=== PATIENT | male | born 1985 | race African-American/Black ===

== ENCOUNTER 2017-04-06 10:03 | Emergency (ER) | payer SELFPAY ==
[~2017-04-06] VITALS: Ht 190.5 cm; Wt 187.3 kg
--- OUTSIDE RECORDS SUMMARY | 2017-04-06 10:06 | XMS REPORT | Clinical Summary ---
Author Author [facility] Address Unknown Phone Unavailable Care Team Providers Care Drying Oven Attendant Name Role Phone PCP Unavailable Allergies No Known Allergies Current Medications Prescription Sig. Disp. Refills Start End Date Status Date XIGDUO XR 5-1,000 mg per 04/28/19 Active ER tablet 17 TRULICITY 1.5 mg/0.5 mL 04/28/19 Active PnIj 17 lisinopril-hydroCHLOROthi 05/03/19 Active azide 17 (PRINZIDE,ZESTORETIC) 20-25 mg per tablet triamcinolone (KENALOG) 05/19/19 Active 0.1 % topical ointment 17 montelukast (SINGULAIR) 04/12/19 Active 10 mg tablet 17 ipratropium (ATROVENT) 03/29/19 Active 0.06 % nasal spray 17 fluticasone (FLONASE) 50 03/02/19 Active mcg/actuation nasal spray 17 atorvastatin (LIPITOR) 40 Take 1 tablet (40 mg 30 tablet 5 05/22/19 05/22/19 Active MG tablet total) by mouth nightly. 17 18 methocarbamol (ROBAXIN) Take 1-2 tab po q4 hours 20 tablet 0 07/19/19 Active 500 MG tablet prn pain/spasm. 17 glyBURIDE-metFORMIN Take 1 tablet by mouth 2 05/21/19 Discontin (GLUCOVANCE) 5-500 mg per (two) times daily. 17 ued tablet amLODIPine (NORVASC) 10 Take 10 mg by mouth 05/21/19 Discontin MG tablet daily. 17 ued pioglitazone (ACTOS) 45 Take 45 mg by mouth 05/21/19 Discontin MG tablet daily. 17 ued atorvastatin (LIPITOR) 40 Take 1 tablet (40 mg 30 tablet 5 05/22/19 05/22/19 Discontin MG tablet total) by mouth nightly. 17 17 ued ibuprofen (ADVIL,MOTRIN) Take 1 tablet (600 mg 30 tablet 0 07/19/19 07/29/19 600 MG tablet total) by mouth every 6 17 17 (six) hours as needed for Pain for up to 10 days. Active Problems Problem Noted Date Chest pain 05/20/2016 Diabetes mellitus (HCC) Hypertension Encounters Date Type Specialty Care Team Description 07/17/2016 Emergency Emergency Medicine Faye De Oliveira, Facial laceration, - MD initial encounter 07/18/2016 (Primary Dx) 05/20/2016 Emergency General Internal Medicine Jordi Banks MD Chest pain, unspecified - Jarad Jansen, type;Essential 05/21/2016 hypertension;Type 2 Sabina Bourgeois MD diabetes mellitus without Mikalaekh Sanjuana Mittal complication, without MD Stephen long-term current use of insulin (HCC);Gastroesophageal reflux disease without esophagitis 05/20/2016 Orders Only General Internal Medicine after 04/05/2016 Family History Medical History Relation Name Comments Diabetes Father Hypertension Father Diabetes Maternal Grandfather Hyperlipidemia Maternal Grandfather Hypertension Maternal Grandfather Diabetes Maternal Grandmother Hypertension Maternal Grandmother Diabetes Mother Hypertension Mother Diabetes Paternal Grandfather Hypertension Paternal Grandfather Diabetes Paternal Grandmother Hypertension Paternal Grandmother Relation Name Status Comments Father Maternal Grandfather Maternal Grandmother Mother Paternal Grandfather Paternal Grandmother Social History Tobacco Use Types Packs/Day Years Used Date Never Smoker Alcohol Use Drinks/Week oz/Week Comments Yes Sex Assigned at Date Recorded Not on file Last Filed Vital Signs Vital Sign Reading Time Taken Blood Pressure 157/90 07/17/2016 9:46 PM CDT Pulse 95 07/17/2016 9:46 PM CDT Temperature 36.5 C (97.7 F) 07/17/2016 9:46 PM CDT Respiratory Rate 18 07/17/2016 9:46 PM CDT Oxygen Saturation 97% 07/17/2016 9:46 PM CDT Inhaled Oxygen - - Concentration Weight 149.7 kg (330 lb) 07/17/2016 9:46 PM CDT Height 186 cm (6' 1.23") 07/17/2016 9:46 PM CDT Body Mass Index 43.27 07/17/2016 9:46 PM CDT Plan of Treatment Not on file Procedures Procedure Name Priority Date/Time Associated Diagnosis Comments OK RESUPERF WND FACE <2.5 Routine 07/18/2016 Results for this CM 2:59 AM CDT procedure are in the results section. after 04/05/2016 Results * LACERATION REPAIR (07/18/2016 2:59 AM) Narrative Faye De Oliveira MD 07/18/20162:59 AM Lac Repair Date/Time: 07/18/2016 12:10 AM Performed by: FAYE DE OLIVEIRA Authorized by: FAYE DE OLIVEIRA Consent: Verbal consent obtained. Risks and benefits: risks, benefits and alternatives were discussed Consent given by: patient Patient understanding: patient states understanding of the procedure being performed Patient consent: the patient's understanding of the procedure matches consent given Time out: Immediately prior to procedure a "time out" was called to verify the correct patient, procedure, equipment, community support associate and site/side marked as required. Body area: head/neck Location details: right eyebrow Laceration length: 2 cm Tendon involvement: none Nerve involvement: none Vascular damage: no Anesthesia: local infiltration Anesthesia: Anesthesia: local infiltration Local Anesthetic: lidocaine 1% without epinephrine Anesthetic total: 1 mL Sedation: Patient sedated: no Preparation: Patient was prepped and draped in the usual sterile fashion. Irrigation solution: tap water Irrigation method: syringe Amount of cleaning: standard Debridement: none Degree of undermining: none Skin closure: 5-0 Prolene Number of sutures: 3 Technique: simple Approximation: close Approximation difficulty: simple Dressing: antibiotic ointment Patient tolerance: Patient tolerated the procedure well with no immediate complications Immediate Post-Procedure Note Assistants to the procedure: None Pre-procedure diagnosis: laceration Post-procedure diagnosis: laceration Procedures Performed: Lac Repair Specimens removed: None Estimated blood loss (mL): None Complications: None Type of anesthesia: None Grafts or Implants: None * RHYTHM STRIP - SCAN (05/25/2016 8:50 AM) * ED ECG Interpretation (05/23/2016 2:45 PM) Jordi Crespo MD 05/23/20162:45 PM History Chief Complaint Patient presents with Chest Pain x 5 days Patient is a 30 y.o. male presenting with chest pain. The history is provided by the patient. Chest Pain Chest pain occurs intermittently. Chest pain heaviness up to 20 min Denies pleuritic cp; no sob. No Known Allergies Past Medical History Diagnosis Date Hypertension Diabetes mellitus (HCC) Past Surgical History Procedure Laterality Date Tympanostomy tube placement Family History Problem Relation Age of Onset Hypertension Mother Diabetes Mother Hypertension Father Diabetes Father Hypertension Maternal Grandmother Diabetes Maternal Grandmother Hypertension Maternal Grandfather Diabetes Maternal Grandfather Hyperlipidemia Maternal Grandfather Diabetes Paternal Grandmother Hypertension Paternal Grandmother Diabetes Paternal Grandfather Hypertension Paternal Grandfather History Substance Use Topics Smoking status: Never Smoker Smokeless tobacco: Not on file Alcohol Use: Yes Review of Systems Cardiovascular: Positive for chest pain. All other systems reviewed and are negative. Physical Exam BP 144/64 | Pulse 75 | Temp(Src) 97.8 F (36.6 C) (Oral) | Resp 18 | Ht 1.905 m (6' 3") | Wt 187.789 kg (414 lb) | BMI 51.75 kg/m2 | SpO2 100% Physical Exam Nursing note and vitals reviewed. Constitutional: He is oriented to person, place, and time. He appears well-developed and well-nourished. HENT: Head: Normocephalic and atraumatic. Eyes: Conjunctivae and EOM are normal. Cardiovascular: Normal rate, regular rhythm and normal heart sounds. Pulmonary/Chest: Effort normal and breath sounds normal. Abdominal: Soft. There is no tenderness. Neurological: He is alert and oriented to person, place, and time. Skin: Skin is warm and dry. Psychiatric: He has a normal mood and affect. His behavior is normal. Neurologic Exam Mental Status Oriented to person, place, and time. Cranial Nerves CN III, IV, Extraocular motions are normal. Ortho Exam ED Course ECG/EKG Interpretation Date/Time: 05/20/2016 6:02 PM Performed by: JORDI BANKS Authorized by: JORDI BANKS The ECG was interpreted by ED physician. This ECG was not compared with previous ECG(s).The ECG is interpreted as sinus rhythm. Rate is normal rate. Conduction: conduction normal. ST segments normal. T waves normal. Other findings: no other findings. Clinical Impression: non-specific ECGECG reviewed and does not meet STEMI criteria. MDM Number of Diagnoses or Management Options Chest pain, unspecified type: new and requires workup Risk of Complications, Morbidity, and/or Mortality Presenting problems: high Diagnostic procedures: moderate Management options: moderate Clinical Impression No diagnosis found. Discharge Medications Medication List ASK your doctor about these medications amLODIPine 10 MG tabletCommonly known as:NORVASC glyBURIDE-metFORMIN 5-500 mg per tabletCommonly known as: GLUCOVANCE pioglitazone 45 MG tabletCommonly known as:ACTOS Plan D/w dr sanjuana mcguire and will admit rdou Procedure Note Jordi Banks MD - 05/20/2016 6:00 PM CDT Formatting of this note may be different from the original. History Chief Complaint Patient presents with Chest Pain x 5 days Patient is a 30 y.o. male presenting with chest pain. The history is provided by the patient. Chest Pain Chest pain occurs intermittently. Chest pain heaviness up to 20 min Denies pleuritic cp; no sob. No Known Allergies Past Medical History Diagnosis Date Hypertension Diabetes mellitus (HCC) Past Surgical History Procedure Laterality Date Tympanostomy tube placement Family History Problem Relation Age of Onset Hypertension Mother Diabetes Mother Hypertension Father Diabetes Father Hypertension Maternal Grandmother Diabetes Maternal Grandmother Hypertension Maternal Grandfather Diabetes Maternal Grandfather Hyperlipidemia Maternal Grandfather Diabetes Paternal Grandmother Hypertension Paternal Grandmother Diabetes Paternal Grandfather Hypertension Paternal Grandfather History Substance Use Topics Smoking status: Never Smoker Smokeless tobacco: Not on file Alcohol Use: Yes Review of Systems Cardiovascular: Positive for chest pain. All other systems reviewed and are negative. Physical Exam BP 144/64 | Pulse 75 | Temp(Src) 97.8 F (36.6 C) (Oral) | Resp 18 | Ht 1.905 m (6' 3") | Wt 187.789 kg (414 lb) | BMI 51.75 kg/m2 | SpO2 100% Physical Exam Nursing note and vitals reviewed. Constitutional: He is oriented to person, place, and time. He appears well- developed and well-nourished. HENT: Head: Normocephalic and atraumatic. Eyes: Conjunctivae and EOM are normal. Cardiovascular: Normal rate, regular rhythm and normal heart sounds. Pulmonary/Chest: Effort normal and breath sounds normal. Abdominal: Soft. There is no tenderness. Neurological: He is alert and oriented to person, place, and time. Skin: Skin is warm and dry. Psychiatric: He has a normal mood and affect. His behavior is normal. Neurologic Exam Mental Status Oriented to person, place, and time. Cranial Nerves CN III, IV, Extraocular motions are normal. Ortho Exam ED Course ECG/EKG Interpretation Date/Time: 05/20/2016 6:02 PM Performed by: JORDI BANKS Authorized by: JORDI BANKS The ECG was interpreted by ED physician. This ECG was not compared with previous ECG(s).The ECG is interpreted as sinus rhythm. Rate is normal rate. Conduction: conduction normal. ST segments normal. T waves normal. Other findings: no other findings. Clinical Impression: non-specific ECGECG reviewed and does not meet STEMI criteria. MDM Number of Diagnoses or Management Options Chest pain, unspecified type: new and requires workup Risk of Complications, Morbidity, and/or Mortality Presenting problems: high Diagnostic procedures: moderate Management options: moderate Clinical Impression No diagnosis found. Discharge Medications Medication List ASK your doctor about these medications amLODIPine 10 MG tablet Commonly known as: NORVASC glyBURIDE-metFORMIN 5-500 mg per tablet Commonly known as: GLUCOVANCE pioglitazone 45 MG tablet Commonly known as: ACTOS Plan D/w dr sanjuana mcguire and will admit Jordi Atkinson MD 05/23/16 1445 * POC-Glucose meter (05/21/2016 12:17 PM) Only the most recent of 3 results within the time period is included. Component Value Ref Range POC-Glucose Meter 109Comment: TESTED AT [address] 70 - 110 mg/[place] [id number] Specimen Performing Laboratory Blood [facility] [address] [address] * Treadmill tolerance(non-nuclear Treadmill) (05/21/2016 8:16 AM) Specimen Performing Laboratory [facility] Narrative Protocol Name PAVEL Time In Exercise Phase 00:07:11 Max. Systolic BP 149 mmHg Max Diastolic BP 88 mmHg Max Heart Rate 187 BPM Max Predicted Heart Rate 189 BPM Reason For Termination Fatigue Reason for Test Chest Pain Target HR Formula (220 - Age)*100% Arrhythmias Premature Ventricular Contractions rare Resting ECG Normal sinus rhythm Poor R wave progression ST Changes No Significant Changes Overall Impression Normal stress ECG Chest Pain none HR Response To Exercise appropriate BP Response To Exercise APPROPRIATE RESPONSE COREG, LISINOPRIL The patient was able to achieve > 85% max HR, 7:11 mins Pavel protocol without symptoms of chest pain, one PVC without other ectopy. Griffiths Treadmill score 7, low risk study. Confirmed by fellow Hood Ray ([id number]) on 05/21/2016 11:32:42 AM Confirmed by MD BURSH JOSEPH P ([id number]) on 05/22/2016 1:44:49 PM Procedure Note Interface, External Ris In - 05/22/2016 1:45 PM CDT Protocol Name PAVEL Time In Exercise Phase 00:07:11 Max. Systolic BP 149 mmHg Max Diastolic BP 88 mmHg Max Heart Rate 187 BPM Max Predicted Heart Rate 189 BPM Reason For Termination Fatigue Reason for Test Chest Pain Target HR Formula (220 - Age)*100% Arrhythmias Premature Ventricular Contractions rare Resting ECG Normal sinus rhythm Poor R wave progression ST Changes No Significant Changes Overall Impression Normal stress ECG Chest Pain none HR Response To Exercise appropriate BP Response To Exercise APPROPRIATE RESPONSE COREG, LISINOPRIL The patient was able to achieve > 85% max HR, 7:11 mins Pavel protocol without symptoms of chest pain, one PVC without other ectopy. Griffiths Treadmill score 7, low risk study. Confirmed by fellow Hood Ray ([id number]) on 05/21/2016 11:32:42 AM Confirmed by MD BRUSH JOSEPH P ([id number]) on 05/22/2016 1:44:49 PM * 2D Echo W/Doppler(CW/PW/Color) (05/21/2016 7:12 AM) Specimen Performing Laboratory [facility] Echocardiography Laboratory [address] [place] [address] Voice:[phone] Transthoracic Echocardiogram Pat.Name:CHELSEY BARILLAS Pat.ID:[id number] St.Date: 05/21/2016 Refer.MD:ROMULO BANGURA Exam Time: 7:12:00 AMStudy Type:Echo Complete Height:75inWeight:413lb BSA: 2.99 m2 DOBAge:1985 ,30Y Sex: MALEBP: 94/50 HR:76 bpmSonogrphr: Snow Holt [facility] Pat. Stat.:Inpatient Room:[facility] Reason for Study:Acute Chest Pain / Suspected CAD History / Clinical:Diabetes, Hypertension Procedures:2D ECHO W/ DOPPLER (CW/PW/COLOR) SUMMARY: Left ventricular chamber size (by PSLAX dimension) is normal (male - LVIDd4.2-5.8 cm). Moderate concentric LV hypertrophy. Estimated LVEF by qualitative assessment is normal (60%). Normal diastolic function The right ventricular chamber size and systolic function are within normal limits. A trace of mitral regurgitation. A trace of tricuspid regurgitation. Estimated Peak systolic PA pressure is 25-30 mm Hg. No pericardial effusion is visualized. In comparison with the prior exam on 07-18-09 there are no significant changes. FINDINGS: Rhythm/BP: Regular sinus rhythm during the exam. LV: All of the LV segments contract normally. Global LV systolic functionis normal. Moderate concentric LV hypertrophy. Normaldiastolic function Left ventricular chamber size ( by PSLAXdimension) is normal (male - LVIDd4.2-5.8 cm). EstimatedLVEF by qualitative assessment is normal (60%). Normal(cardiac index 2-3 L/min/m2) cardiac output state at restis noted. LA: LA size is normal (16-34 ml/m2). RV: The right ventricular chamber size and systolic function are withinnormal limits. RA: RA cavity size is normal. AV: Normal AoV structure by available views. MV: A trace of mitral regurgitation. Normal MV structure by availableviews. TV: A trace of tricuspid regurgitation. TV structure appears normalby available views. Estimated Peak systolic PA pressureis 25-30 mm Hg. PV: Normal PV structure and function. Mild pulmonary regurgitation. AO: Aortic root size (Sinus of Valsalva diameter) is normal. Proximalascending aorta size is normal. Pericard: No pericardial effusion is visualized. Systemic Veins: The estimated RA pressure by IVC dynamics 5-10 mmHg. PA/PV/Pleural: The right upper pulmonary vein (RUPV) is normal. Comparison: In comparison with the prior exam on 07-18-09 there are no significantchanges. MEASUREMENTS: 2D LA Sng Plane LA Vol83.5 mlIndex 27.9 ml/m2 LA Area 23.3 cm2(8.8-23.4) RA Sng Plane RA Vol88.3 mlIndex 29.5 ml/m2 RA Area 25.2 cm2(8.3-19.5)* Aorta Ao Asc2.86 cm (2.1-3.4) LVOT Stroke Vol & Cardiac Out LVOT 2.3 cm Parasternal Long Cecil Ao An 2.28 cm (1.4-2.6) LV%fs 36.9 %(25-46) Ao Rtd3.17 cmLVPWd 1.38 cm IVSd1.38 cm LA Ds 3.95 cm (2.3-3.9)* LVIDd 5.42 cm (4.3-5.1)* LV Wmn 1.38 cm LVIDs 3.42 cm (2-4) DOPPLER LVOT Stroke Vol & Cardiac Out LVOT VTI17.5 cmLVOT CO 7.24 l/min LVOT SV 72.8 mlLVOT CI 2.42 l/min/m2 Aortic Valve SVi (LVOT)24.3 Signed 05/21/2016 10:35 AM Elijah Green M.D. Procedure Note Interface, External Ris In - 05/21/2016 10:37 AM CDT Echocardiography Laboratory [address] [place] [id number] Voice: [phone] Transthoracic Echocardiogram Pat.Name: CHELSEY BARILLAS JR. Pat.ID: [id number] .Date: 05/21/2016 Refer.MD: ROMULO BANGURA Exam Time: 7:12:00 AM Study Type:Echo Complete Height: 75in Weight: 413lb BSA: 2.99 m2 Age: 7 1985,30Y Sex: MALE BP: 94/50 HR: 76 bpm Sonogrphr: Snow Holt [facility] Pat. Stat.:Inpatient Room: [facility] Reason for Study:Acute Chest Pain / Suspected CAD History / Clinical:Diabetes, Hypertension Procedures:2D ECHO W/ DOPPLER (CW/PW/COLOR) SUMMARY: Left ventricular chamber size (by PSLAX dimension) is normal (male - LVIDd 4.2-5.8 cm). Moderate concentric LV hypertrophy. Estimated LVEF by qualitative assessment is normal (60%). Normal diastolic function The right ventricular chamber size and systolic function are within normal limits. A trace of mitral regurgitation. A trace of tricuspid regurgitation. Estimated Peak systolic PA pressure is 25-30 mm Hg. No pericardial effusion is visualized. In comparison with the prior exam on 07-18-09 there are no significant changes. FINDINGS: Rhythm/BP: Regular sinus rhythm during the exam. LV: All of the LV segments contract normally. Global LV systolic function is normal. Moderate concentric LV hypertrophy. Normal diastolic function Left ventricular chamber size (by PSLAX dimension) is normal (male - LVIDd 4.2-5.8 cm). Estimated LVEF by qualitative assessment is normal (60%). Normal (cardiac index 2-3 L/min/m2) cardiac output state at rest is noted. LA: LA size is normal (16-34 ml/m2). RV: The right ventricular chamber size and systolic function are within normal limits. RA: RA cavity size is normal. AV: Normal AoV structure by available views. MV: A trace of mitral regurgitation. Normal MV structure by available views. TV: A trace of tricuspid regurgitation. TV structure appears normal by available views. Estimated Peak systolic PA pressure is 25-30 mm Hg. PV: Normal PV structure and function. Mild pulmonary regurgitation. AO: Aortic root size (Sinus of Valsalva diameter) is normal. Proximal ascending aorta size is normal. Pericard: No pericardial effusion is visualized. Systemic Veins: The estimated RA pressure by IVC dynamics 5-10 mmHg. PA/PV/Pleural: The right upper pulmonary vein (RUPV) is normal. Comparison: In comparison with the prior exam on 07-18-09 there are no significant changes. MEASUREMENTS: 2D LA Sng Plane LA Vol 83.5 ml Index 27.9 ml/m2 LA Area 23.3 cm2 (8.8-23.4) RA Sng Plane RA Vol 88.3 ml Index 29.5 ml/m2 RA Area 25.2 cm2 (8.3-19.5)* Aorta Ao Asc 2.86 cm (2.1-3.4) LVOT Stroke Vol & Cardiac Out LVOT 2.3 cm Parasternal Long Cecil Ao An 2.28 cm (1.4-2.6) LV%fs 36.9 % (25-46) Ao Rtd 3.17 cm LVPWd 1.38 cm IVSd 1.38 cm LA Ds 3.95 cm (2.3-3.9)* LVIDd 5.42 cm (4.3-5.1)* LV Wmn 1.38 cm LVIDs 3.42 cm (2-4) DOPPLER LVOT Stroke Vol & Cardiac Out LVOT VTI 17.5 cm LVOT CO 7.24 l/min LVOT SV 72.8 ml LVOT CI 2.42 l/min/m2 Aortic Valve SVi (LVOT) 24.3 Signed 05/21/2016 10:35 AM Elijah Green M.D. * Urinalysis w/Microscopic (05/21/2016 7:12 AM) Component Value Ref Range Color, UA Yellow Clarity, UA Clear Specific [place], UA 1.011 1.001 - 1.035 pH, UA 5.5 5.0 - 8.0 Protein, UA Negative Negative Glucose, UA >1000 mg/dL (A) Negative Ketones, UA Negative Negative Bilirubin, UA Negative Negative Blood, UA Negative Negative Nitrite, UA Negative Negative Leukocytes, UA Large (A) Negative Urobilinogen, UA 0.2 0.2 - 1.0 mg/dL RBC, UA <1 /HPF WBC, UA 4 /HPF Bacteria, UA Occasional Squam Epithel, UA 5 /HPF Specimen Source Urine, Voided Specimen Performing Laboratory Urine - Urine, [place] [address] * CBC with platelet count + automated diff (05/21/2016 5:48 AM) Only the most recent of 2 results within the time period is included. Component Value Ref Range WBC 10.2 (H) 4.0 - 10.0 K/ L RBC 5.77 4.20 - 5.80 M/ L Hemoglobin 14.2 13.0 - 16.8 GM/DL Hematocrit 45.7 40.0 - 50.0 % MCV 79.1 (L) 82.0 - 98.0 fL MCH 24.7 (L) 27.0 - 33.0 pg MCHC 31.2 (L) 32.0 - 36.0 GM/DL RDW 14.2 10.3 - 14.2 % Platelets 309 150 - 430 K/CU MM MPV 8.8 6.5 - 10.5 fL nRBC 0 0 - 0 /100 WBC % Neutros 70 % % Lymphs 22 % % Monos 7 % % Eos 1 % % Baso 0 % # Neutros 7.15 1.80 - 8.00 K/ L # Lymphs 2.20 1.48 - 4.50 K/ L # Monos 0.76 0.00 - 1.30 K/ L # Eos 0.12 0.00 - 0.50 K/ L # Baso 0.00 0.00 - 0.20 K/ L Specimen Performing Laboratory Blood - Arm, Left [facility] [address] [place] [address] Narrative 0.00 * CBC with platelet count + automated diff (05/21/2016 5:48 AM) Only the most recent of 2 results within the time period is included. Specimen Performing Laboratory Blood Narrative The following orders were created for panel order CBC with platelet count + automated diff. Procedure Abnormality Status --------- - ------ CBC with platelet count ...[[id number]]AbnormalFinal result Please view results for these tests on the individual orders. * Hemoglobin A1c (05/21/2016 5:48 AM) Component Value Ref Range Hemoglobin A1C 8.7 (H)Comment: POSSIBLE HEMOGLOBIN S VARIANT 4.3 - 6.1 % NOTED IN HEMOGLOBIN A1C CHROMATOGRAPH. SUGGEST HEMOGLOBIN ELECTROPHORESIS IF CLINICALLY INDICATED. Specimen Performing Laboratory Blood - Arm, [address] [address] * Troponin I (05/21/2016 5:47 AM) Only the most recent of 2 results within the time period is included. Component Value Ref Range Troponin I <0.01 0.00 - 0.03 ng/mL Specimen Performing Laboratory Blood - Arm, [address] [address] Narrative Effective 01/08/2014: Reference Range Change New: 0.00-0.03 Previous 0.00-0.15 Troponin I (TnI) levels must be interpreted in the context of the presenting symptoms and the clinical findings. Elevated TnI levels indicate myocardial damage, but are not specific for ischemic heart disease. Elevated TnI levels are seen in patients with other cardiac conditions (including myocarditis and congestive heart failure), and slight TnI elevations occur in patients with other conditions, including sepsis, renal failure, acidosis, acute neurological disease, and persistent tachyarrhythmia. * Prothrombin time/INR (05/21/2016 5:47 AM) Component Value Ref Range Protime 13.8 11.7 - 14.7 seconds INR 1.1 <=5.9 Specimen Performing Laboratory Blood - Arm, [address] [address] Narrative RECOMMENDED COUMADIN/WARFARIN INR THERAPY RANGES STANDARD DOSE: 2.0 - 3.0 Includes: PROPHYLAXIS for venous thrombosis, systemic embolization; TREATMENT for venous thrombosis and/or pulmonary embolus. HIGH RISK: Target INR is 2.5-3.5 for patients with mechanical heart valves. * Magnesium (05/21/2016 5:47 AM) Only the most recent of 2 results within the time period is included. Component Value Ref Range Magnesium 2.1 1.6 - 2.6 mg/dL Specimen Performing Laboratory Blood - Arm, [address] [address] * Hepatic function panel (05/21/2016 5:47 AM) Component Value Ref Range Protein, Total 7.8 6.0 - 8.3 gm/dL Albumin 4.1 3.5 - 5.0 g/dL Total Bilirubin 0.4 0.2 - 1.2 mg/dL Bilirubin, Direct 0.2 0.1 - 0.5 mg/dL Alkaline Phosphatase 73 40 - 150 U/L AST 21 5 - 34 U/L ALT 42 6 - 55 U/L Specimen Performing Laboratory Blood - Arm, [address] [address] * Lipid panel (05/21/2016 5:47 AM) Component Value Ref Range Triglycerides 125 mg/dL Cholesterol 172 mg/dL HDL 26 mg/dL LDL Calculated 121 mg/dL Specimen Performing Laboratory Blood - Arm, [address] [address] Narrative Triglyceride Reference Range: Low Risk <150 [id number] High Risk 200-499 Very High Risk>=500 Cholesterol Reference Range: Low Risk <200 Mholdmnuuu831-682 High Risk>240 HDL Cholesterol Reference Range: Low Risk >=60 High Risk <40 LDL Cholesterol Reference Range: Optimal<100 Near Fkmyzre309-837 Mqvjjpkfrl594-435 Joya815-178 Very High >=190 * Basic metabolic panel (05/21/2016 5:47 AM) Only the most recent of 2 results within the time period is included. Component Value Ref Range Sodium 137 136 - 145 meq/L Potassium 4.1 3.5 - 5.1 meq/L Chloride 100 98 - 107 meq/L CO2 26 22 - 29 meq/L BUN 14 7 - 21 mg/dL Creatinine 0.90 0.57 - 1.25 mg/dL Glucose 121 (H) 70 - 105 mg/dL Calcium 9.8 8.4 - 10.2 mg/dL EGFR 119Comment: ESTIMATED GFR IS NOT ACCURATE mL/min/1.73 sq m CREATININE CLEARANCE IN PREDICTING GLOMERULAR FILTRATION RATE. ESTIMATED GFR IS NOT APPLICABLE FOR DIALYSIS PATIENTS. Specimen Performing Laboratory Blood - Arm, Left [address] [address] * Creatine Kinase (CK), Total and MB (05/21/2016 12:41 AM) Component Value Ref Range Total CK 79 29 - 200 U/L CK-MB 0.8 0.0 - 6.6 ng/mL MB Relative Index 1.0 % Specimen Performing Laboratory Blood - Arm, Left [address] [address] Narrative Effective 01/08/2014: CK-MB Reference Range Change New: 0.0-6.6Previous: 0.0-4.9 CK-MB Reference Range: <6.7Normal 6.7-10.0Borderline >10.0 Abnormal * ECG 12 lead (05/20/2016 8:54 PM) Only the most recent of 2 results within the time period is included. Specimen Performing Laboratory GE MUSE Narrative Ventricular Rate 93 BPM Atrial Rate 93 BPM P-R Interval 154 ms QRS Duration 92 ms Q-T Interval 336 ms QTC Calculation(Bazett) 417 ms P Cecil 27 degrees R Cecil -14 degrees T Cecil 37 degrees Normal sinus rhythm Normal ECG When compared with ECG of 18-JUL-2009 10:17, No significant change was found Confirmed by MD SHOOK JORGE ([id number]) on 05/21/2016 2:54:33 PM Procedure Note Interface, External Ris In - 05/21/2016 2:54 PM CDT Ventricular Rate 93 BPM Atrial Rate 93 BPM P-R Interval 154 ms QRS Duration 92 ms Q-T Interval 336 ms QTC Calculation(Bazett) 417 ms P Cecil 27 degrees R Cecil -14 degrees T Cecil 37 degrees Normal sinus rhythm Normal ECG When compared with ECG of 18-JUL-2009 10:17, No significant change was found Confirmed by MD SHOOK JORGE ([id number]) on 05/21/2016 2:54:33 PM * XR chest 2 views (05/20/2016 5:10 PM) Specimen Performing Laboratory GE RIS Narrative FINAL REPORT TECHNIQUE: Frontal and lateral chest radiographs dated 05/20/2016. CLINICAL HISTORY: Chest pain COMPARISON STUDY: Chest radiograph dated 04/01/2009 FINDINGS: The lateral view is degraded by motion artifact. Lungs are clear. No pleural effusion or pneumothorax. Cardiomediastinal silhouette is normal in size. No pulmonary edema. No bone or soft tissue abnormalities are seen. IMPRESSION: Normal chest radiographs. Signed: Kassandra Augustin MD Report Verified Date/Time:05/20/2016 17:22:18 Reading Location: [facility] Radiology Reading Room Procedure Note Interface, External Ris In - 05/20/2016 5:24 PM CDT FINAL REPORT TECHNIQUE: Frontal and lateral chest radiographs dated 05/20/2016. CLINICAL HISTORY: Chest pain COMPARISON STUDY: Chest radiograph dated 04/01/2009 FINDINGS: The lateral view is degraded by motion artifact. Lungs are clear. No pleural effusion or pneumothorax. Cardiomediastinal silhouette is normal in size. No pulmonary edema. No bone or soft tissue abnormalities are seen. IMPRESSION: Normal chest radiographs. Signed: Kassandra Augustin MD Report Verified Date/Time: 05/20/2016 17:22:18 Reading Location: [facility] Radiology Reading Room * Rapid Myoglobin (05/20/2016 5:01 PM) Component Value Ref Range Rapid Myoglobin 108 (H) <107 ng/mL Specimen Performing Laboratory Blood [facility], [facility] [address] [place] [address] * Rapid Troponin I (05/20/2016 5:01 PM) Component Value Ref Range Rapid Troponin I <0.05 <0.05 ng/mL Specimen Performing Laboratory [facility], [facility] [address] [place] [address] * Rapid CK-MB (05/20/2016 5:01 PM) Component Value Ref Range Rapid CKMB 1.5 0.0 - 4.3 ng/mL Specimen Performing Laboratory Blood [facility], [facility] [address] [place] [address] * PT/PTT (05/20/2016 5:01 PM) Component Value Ref Range Protime 10.6 9.8 - 12.0 seconds INR 1.0 <=5.9 PTT 25.7 (L) 25.8 - 34.5 seconds Specimen Performing Laboratory Blood [facility], [facility] , [facility] [address] [place] [address] Narrative RECOMMENDED COUMADIN/WARFARIN INR THERAPY RANGES STANDARD DOSE: 2.0 - 3.0 Includes: PROPHYLAXIS for venous thrombosis, systemic embolization; TREATMENT for venous thrombosis and/or pulmonary embolus. HIGH RISK: Target INR is 2.5-3.5 for patients with mechanical heart valves. * B-type Natriuretic Factor (BNP) (05/20/2016 5:01 PM) Component Value Ref Range BNP <5 0 - 100 pg/mL Specimen Performing Laboratory Blood [facility], [facility] , [facility] [address] [place] [address] * Creatine Kinase (CK) (05/20/2016 5:01 PM) Component Value Ref Range Total CK 75 40 - 250 U/L Specimen Performing Laboratory Blood [facility], [facility] , [facility] [address] [place] [address] after 04/05/2016
--- OUTSIDE RECORDS SUMMARY | 2017-04-06 10:06 | XMS REPORT ---
Author Author [facility] Address Unknown Phone Unavailable Care Team Providers Care Ham Pumper Name Role Phone BRENDA BABB Unavailable Unavailable Problems This patient has no known problems. Allergies, Adverse Reactions, Alerts This patient has no known allergies or adverse reactions. Medications This patient has no known medications. Results Test Description Test Time Test Comments Text Results Atomic Results Result Comments POCT-GLUCOSE METER 2016-05-21 14:24:00 POC-GLUCOSE METER (BEAKER) (test axst=0841) 109 mg/dL 70-110 TESTED AT [facility] [address] [facility] [address] HEMOGLOBIN [id number] 10:22:00* Test Item Value Reference Range Comments HEMOGLOBIN A1C (BEAKER) (test egry=830) 8.7 % 4.3-6.1 POSSIBLE HEMOGLOBIN S VARIANT NOTED IN HEMOGLOBIN A1C CHROMATOGRAPH. SUGGEST HEMOGLOBIN ELECTROPHORESIS IF CLINICALLY INDICATED. URINALYSIS W/ [id number] 09:33:00* Test Item Value Reference Range Comments COLOR (BEAKER) (test xmta=861) Yellow CLARITY (BEAKER) (test oeyi=530) Clear SPECIFIC GRAVITY UA (BEAKER) (test uoqi=702) 1.011 1.001-1.035 PH UA (BEAKER) (test yrki=684) 5.5 5.0-8.0 PROTEIN UA (BEAKER) (test xfda=780) Negative Negative GLUCOSE UA (BEAKER) (test ckmw=751) >1000 mg/dL Negative KETONES UA (BEAKER) (test zjhi=157) Negative Negative BILIRUBIN UA (BEAKER) (test jpjl=294) Negative Negative BLOOD UA (BEAKER) (test vxhl=498) Negative Negative NITRITE UA (BEAKER) (test gobi=169) Negative Negative LEUKOCYTE ESTERASE UA (BEAKER) (test krsb=743) Large Negative UROBILINOGEN UA (BEAKER) (test edte=368) 0.2 mg/dL 0.2-1.0 RBC UA (BEAKER) (test xuyd=304) < /HPF WBC UA (BEAKER) (test szjy=153) 4 /HPF BACTERIA (BEAKER) (test ohre=576) Occasional SQUAMOUS EPITHELIAL (BEAKER) (test liox=663) 5 /HPF SOURCE(BEAKER) (test swno=7926) Urine, Voided TROPONIN [id number] 07:25:00* Test Item Value Reference Range Comments TROPONIN I (BEAKER) (test svbh=560) < ng/mL 0.00-0.03 Effective 01/08/2014: Reference Range ChangeNew: 0.00-0.03 Previous 0.00- 0.15Troponin I (TnI) levels must be interpreted in [...] failure, acidosis, acute neurological disease, and persistent tachyarrhythmia.[id number] 07:19:00* Test Item Value Reference Range Comments MAGNESIUM (BEAKER) (test fyfc=413) 2.1 mg/dL 1.6-2.6 BASIC METABOLIC [id number] 07:19:00* Test Item Value Reference Range Comments SODIUM (BEAKER) (test gakj=743) 137 meq/L 136-145 POTASSIUM (BEAKER) (test dikf=187) 4.1 meq/L 3.5-5.1 CHLORIDE (BEAKER) (test dhtl=490) 100 meq/L 98-107 CO2 (BEAKER) (test dzql=565) 26 meq/L 22-29 BLOOD UREA NITROGEN (BEAKER) (test vjqj=280) 14 mg/dL 7-21 CREATININE (BEAKER) (test bylz=440) 0.90 mg/dL 0.57-1.25 GLUCOSE RANDOM (BEAKER) (test ifhl=094) 121 mg/dL 70-105 CALCIUM (BEAKER) (test wqpn=120) 9.8 mg/dL 8.4-10.2 EGFR (BEAKER) (test mtff=5658) 119 mL/min/1.73 sq m ESTIMATED GFR IS NOT ACCURATE CREATININE CLEARANCE IN PREDICTING GLOMERULAR FILTRATION RATE. ESTIMATED GFR IS NOT APPLICABLE FOR DIALYSIS PATIENTS. LIPID [id number] 07:19:00* Test Item Value Reference Range Comments TRIGLYCERIDES (BEAKER) (test tfpf=621) 125 mg/dL CHOLESTEROL (BEAKER) (test bema=011) 172 mg/dL HDL CHOLESTEROL (BEAKER) (test dchc=751) 26 mg/dL LDL CHOLESTEROL CALCULATED (BEAKER) (test wqmy=692) 121 mg/dL Triglyceride Reference Range: Low Risk <150 Borderline 150-199 High Risk 200-499 Very High Risk >=500Cholesterol Reference Range: Low Risk <200 Borderline 200-239 High Risk >240HDL Cholesterol Reference Range: Low Risk >=60 High Risk <40LDL Cholesterol Reference Range: Optimal <100 Near Optimal 100-129 Borderline 130-159 High 160-189 Very High >=190 HEPATIC FUNCTION [id number] 07:19:00* Test Item Value Reference Range Comments TOTAL PROTEIN (BEAKER) (test edwd=955) 7.8 gm/dL 6.0-8.3 ALBUMIN (BEAKER) (test mfmk=2477) 4.1 g/dL 3.5-5.0 BILIRUBIN TOTAL (BEAKER) (test kxza=465) 0.4 mg/dL 0.2-1.2 BILIRUBIN DIRECT (BEAKER) (test nnzc=871) 0.2 mg/dL 0.1-0.5 ALKALINE PHOSPHATASE (BEAKER) (test fqcw=964) 73 U/L 40-150 AST (SGOT) (BEAKER) (test tonn=751) 21 U/L 5-34 ALT (SGPT) (BEAKER) (test wkss=584) 42 U/L 6-55 POCT-GLUCOSE [id number] 07:09:00* Test Item Value Reference Range Comments POC-GLUCOSE METER (BEAKER) (test ffhx=3926) 125 mg/dL 70-110 TESTED AT [facility] [address] [facility] [address] CBC W/PLT COUNT & AUTO [id number] 06:43:00* Test Item Value Reference Range Comments WHITE BLOOD CELL COUNT (BEAKER) (test hqzd=045) 10.2 K/ L 4.0-10.0 RED BLOOD CELL COUNT (BEAKER) (test bvnc=946) 5.77 M/ L 4.20-5.80 HEMOGLOBIN (BEAKER) (test ixjm=205) 14.2 GM/DL 13.0-16.8 HEMATOCRIT (BEAKER) (test itpq=712) 45.7 % 40.0-50.0 MEAN CORPUSCULAR VOLUME (BEAKER) (test untv=560) 79.1 fL 82.0-98.0 MEAN CORPUSCULAR HEMOGLOBIN (BEAKER) (test mvqu=147) 24.7 pg 27.0-33.0 MEAN CORPUSCULAR HEMOGLOBIN CONC (BEAKER) (test sljf=251) 31.2 GM/DL 32.0- 36.0 RED CELL DISTRIBUTION WIDTH (BEAKER) (test mdmj=315) 14.2 % 10.3-14.2 PLATELET COUNT (BEAKER) (test oeai=135) 309 K/CU MM 150-430 MEAN PLATELET VOLUME (BEAKER) (test tdpz=292) 8.8 fL 6.5-10.5 NUCLEATED RED BLOOD CELLS (BEAKER) (test dsrd=486) 0 /100 WBC 0-0 NEUTROPHILS RELATIVE PERCENT (BEAKER) (test qkdz=439) 70 % LYMPHOCYTES RELATIVE PERCENT (BEAKER) (test qxav=590) 22 % MONOCYTES RELATIVE PERCENT (BEAKER) (test xujj=146) 7 % EOSINOPHILS RELATIVE PERCENT (BEAKER) (test etoq=278) 1 % BASOPHILS RELATIVE PERCENT (BEAKER) (test qtef=526) 0 % NEUTROPHILS ABSOLUTE COUNT (BEAKER) (test pjjs=087) 7.15 K/ L 1.80-8.00 LYMPHOCYTES ABSOLUTE COUNT (BEAKER) (test ibkh=345) 2.20 K/ L 1.48-4.50 MONOCYTES ABSOLUTE COUNT (BEAKER) (test lzyb=870) 0.76 K/ L 0.00-1.30 EOSINOPHILS ABSOLUTE COUNT (BEAKER) (test dhnj=667) 0.12 K/ L 0.00-0.50 BASOPHILS ABSOLUTE COUNT (BEAKER) (test hrny=253) 0.00 K/ L 0.00-0.20 0.00PROTHROMBIN [id number] 06:41:00* Test Item Value Reference Range Comments PROTIME (BEAKER) (test wcyw=461) 13.8 seconds 11.7-14.7 INR (BEAKER) (test fynn=933) 1.1 <=5.9 RECOMMENDED COUMADIN/WARFARIN INR THERAPY RANGESSTANDARD DOSE: 2.0 - 3.0 Includes: PROPHYLAXIS for venous thrombosis, systemic embolization; TREATMENT for venous thrombosis and/or pulmonary embolus.HIGH RISK: Target INR is 2.5-3.5 for patients with mechanical heart valves.CREATINE KINASE (CK), TOTAL AND [id number] 01:14:00* Test Item Value Reference Range Comments CREATINE KINASE TOTAL (PATITO) (test pfpa=334) 79 U/L 29-200 CREATINE KINASE-MB (BEAKER) (test qafw=980) 0.8 ng/mL 0.0-6.6 CREATINE KINASE-MB INDEX (NIRAJAKER) (test gsmh=018) 1.0 % Effective 01/08/2014: CK-MB Reference Range ChangeNew: 0.0-6.6 Previous: 0.0- 4.9CK-MB Reference Range:<6.7 Normal6.7-10.0 Borderline>10.0 AbnormalTROPONIN [id number] 01:14:00* Test Item Value Reference Range Comments TROPONIN I (NIRAJAKER) (test ocfv=855) 0.01 ng/mL 0.00-0.03 Effective 01/08/2014: Reference Range ChangeNew: 0.00-0.03 Previous 0.00- 0.15Troponin I (TnI) levels must be interpreted in [...] failure, acidosis, acute neurological disease, and persistent tachyarrhythmia.POCT-GLUCOSE [id number] 21:39:00* Test Item Value Reference Range Comments POC-GLUCOSE METER (Joyus) (test iuad=2932) 113 mg/dL 70-110 TESTED AT [facility] [address] [facility] [address] RAPID [id number] 17:29:00* Test Item Value Reference Range Comments RAPID MYOGLOBIN (OncoMed PharmaceuticalsAKER) (test rfax=7361) 108 ng/mL <107 RAPID TROPONIN [id number] 17:29:00* Test Item Value Reference Range Comments RAPID TROPONIN I (BEAKER) (test agqd=0725) < ng/mL <0.05 B-TYPE NATRIURETIC FACTOR (BNP)2016-05-20 17:29:00* Test Item Value Reference Range Comments B-TYPE NATRIURETIC PEPTIDE (BEAKER) (test hvrv=605) < pg/mL 0-100 RAPID [id number] 17:28:00* Test Item Value Reference Range Comments RAPID CKMB (BEAKER) (test whwe=5619) 1.5 ng/mL 0.0-4.3 CBC W/PLT COUNT & AUTO [id number] 17:24:00* Test Item Value Reference Range Comments WHITE BLOOD CELL COUNT (BEAKER) (test ucui=645) 11.3 10e3/ L 4.0-10.0 RED BLOOD CELL COUNT (BEAKER) (test ngka=595) 5.95 10e6/ L 4.20-5.80 HEMOGLOBIN (BEAKER) (test iacs=005) 14.8 g/dL 13.0-16.8 HEMATOCRIT (BEAKER) (test fjov=190) 45.3 % 40.0-50.0 MEAN CORPUSCULAR VOLUME (BEAKER) (test fgyk=900) 76.1 fL 82.0-98.0 MEAN CORPUSCULAR HEMOGLOBIN (BEAKER) (test wrcj=128) 24.8 pg 27.0-33.0 MEAN CORPUSCULAR HEMOGLOBIN CONC (BEAKER) (test vkcx=015) 32.6 g/dL 32.0- 36.0 RED CELL DISTRIBUTION WIDTH (BEAKER) (test ztxd=063) 13.0 % 10.3-14.2 PLATELET COUNT (BEAKER) (test rimi=657) 353 10e3/ L 150-430 MEAN PLATELET VOLUME (BEAKER) (test fuob=201) 8.7 fL 6.5-10.5 NEUTROPHILS RELATIVE PERCENT (BEAKER) (test uwcz=294) 65 % LYMPHOCYTES RELATIVE PERCENT (BEAKER) (test dxnx=904) 24 % MONOCYTES RELATIVE PERCENT (BEAKER) (test eoee=536) 9 % EOSINOPHILS RELATIVE PERCENT (BEAKER) (test were=682) 2 % BASOPHILS RELATIVE PERCENT (BEAKER) (test wdsl=979) 1 % NEUTROPHILS ABSOLUTE COUNT (BEAKER) (test jcua=762) 7.38 10e3/ L 1.80-8.00 LYMPHOCYTES ABSOLUTE COUNT (BEAKER) (test vbop=759) 2.68 10e3/ L 1.48-4.50 MONOCYTES ABSOLUTE COUNT (BEAKER) (test wrzy=609) 0.96 10e3/ L 0.00-1.30 EOSINOPHILS ABSOLUTE COUNT (BEAKER) (test gtui=409) 0.18 10e3/ L 0.00-0.50 BASOPHILS ABSOLUTE COUNT (BEAKER) (test izej=780) 0.08 10e3/ L 0.00-0.20 PT/[id number] 17:21:00* Test Item Value Reference Range Comments PROTIME (BEAKER) (test wlod=117) 10.6 seconds 9.8-12.0 INR (BEAKER) (test owgc=467) 1.0 <=5.9 PARTIAL THROMBOPLASTIN TIME (BEAKER) (test ctbp=475) 25.7 seconds 25.8-34.5 RECOMMENDED COUMADIN/WARFARIN INR THERAPY RANGESSTANDARD DOSE: 2.0 - 3.0 Includes: PROPHYLAXIS for venous thrombosis, systemic embolization; TREATMENT for venous thrombosis and/or pulmonary embolus.HIGH RISK: Target INR is 2.5-3.5 for patients with mechanical heart valves.[id number] 17:19:00* Test Item Value Reference Range Comments MAGNESIUM (BEAKER) (test exhz=045) 1.9 mg/dL 1.5-3.0 BASIC METABOLIC [id number] 17:19:00* Test Item Value Reference Range Comments SODIUM (BEAKER) (test qgjo=184) 141 meq/L 135-148 POTASSIUM (BEAKER) (test onas=234) 4.3 meq/L 3.6-5.5 CHLORIDE (BEAKER) (test qlsa=498) 96 meq/L 98-106 CO2 (BEAKER) (test cdku=407) 28 meq/L 24-32 BLOOD UREA NITROGEN (BEAKER) (test trfo=743) 14 mg/dL 10-26 CREATININE (BEAKER) (test esfu=989) 0.84 mg/dL 0.50-1.20 GLUCOSE RANDOM (BEAKER) (test jdyc=130) 111 mg/dL 70-110 CALCIUM (BEAKER) (test eyew=466) 10.1 mg/dL 8.5-10.5 EGFR (PATITO) (test sdcy=5850) 129 mL/min/1.73 sq m ESTIMATED GFR IS NOT ACCURATE CREATININE CLEARANCE IN PREDICTING GLOMERULAR FILTRATION RATE. ESTIMATED GFR IS NOT APPLICABLE FOR DIALYSIS PATIENTS. CREATINE KINASE (CK)2016-05-20 17:19:00* Test Item Value Reference Range Comments CREATINE KINASE TOTAL (PATITO) (test wfyi=774) 75 U/L 40-250
[2017-04-06 15:58] VITALS: BP 128/84
== END 2017-04-06 14:49 | disposition home or self-care (01) ==
LOC: FSED 10:03
DX: R10.11 Right upper quadrant pain (principal); K21.9 Gastro-esophageal reflux disease without esophagitis; I10 Essential (primary) hypertension; E11.65 Type 2 diabetes mellitus with hyperglycemia
CPT/HCPCS: 76705; 80048; 82553; 84484; 85025; 93005; 99284

== ENCOUNTER 2021-11-20 18:07 | Emergency (ER) | payer OTHER ==
[~2021-11-20] VITALS: Ht 190.5 cm; Wt 172.4 kg
[2021-11-20] MEDS ORDERED: ATORVASTATIN CA20 MG PO (18:50)
[2021-11-20] MEDS ORDERED: LISINOPRIL-HCT1 EAC1 (18:50)
[2021-11-20] MEDS ORDERED: TRULICITY0.75 MG/0. (18:50)
[2021-11-20] MEDS ORDERED: XIGDUO XR 5 MG1 EAC1 (18:50)
[2021-11-20] MEDS ORDERED: PHENTERMINE H37.5 MG (18:50)
[2021-11-20] MEDS ORDERED: AMOXICILLIN/CLAVULANATE K 875 MG TAB PO STA (19:04)
[2021-11-20] MEDS ORDERED: AMOX TR-K CLV1 EAC2 PO (19:08)
[2021-11-20] MEDS ORDERED: AMOXICILLIN/CLAVULANATE K 875 MG TAB ONE (19:17)
== END 2021-11-20 19:45 | disposition home or self-care (01) ==
LOC: FSED 18:58
DX: R50.9 Fever, unspecified (principal); J02.9 Acute pharyngitis, unspecified; E11.9 Type 2 diabetes mellitus without complications; S90.422A Blister (nonthermal), left great toe, initial encounter; S90.421A Blister (nonthermal), right great toe, initial encounter; E78.5 Hyperlipidemia, unspecified; E66.9 Obesity, unspecified
CPT/HCPCS: 99283